=== PATIENT | female | born 1980 | race Caucasian/White ===

== ENCOUNTER 2018-03-07 14:43 | Emergency (ER) | payer OTHER, SELFPAY ==
--- NOTE | 2018-03-07 15:15 | RAD ---
LEFT KNEE 4 VIEWS: HISTORY: Injury, left knee pain. FINDINGS: No acute fracture or dislocation is identified. POS: [facility]
[2018-03-07] MEDS ORDERED: Ketorolac Tromethamine 60 MG/2 ML VIAL ONE (15:35)
== END 2018-03-07 15:55 | disposition home or self-care (01) ==
LOC: ERS 14:43
DX: M25.562 Pain in left knee (principal)
CPT/HCPCS: 96372; J1885

== ENCOUNTER 2025-06-10 21:27 | Emergency (ER) | payer SELFPAY | END 2025-06-10 22:35 | disposition left against medical advice (07) | LOC: ERS 21:27 | DX: Z53.21 Procedure and treatment not carried out due to patient leaving prior to being seen by health care provider (principal) ==